=== PATIENT | female | born 1945 | race Hispanic/Latino ===

== ENCOUNTER → 2019-02-15 | Outpatient (CLI) | payer MEDICARE, OTHER ==
[~2019-02-15] MED LIST: IOHEXOL-350 75 ML VIAL IV ONE
== END | disposition home or self-care (01) ==
LOC: RAH 08:22
PROVIDERS: ATTEND Family Medicine
DX: K43.9 Ventral hernia without obstruction or gangrene (principal); R22.2 Localized swelling, mass and lump, trunk; Z90.49 Acquired absence of other specified parts of digestive tract
CPT/HCPCS: 74178; Q9967

== ENCOUNTER 2019-03-13 07:27 | Day surgery (SDC) | payer OTHER ==
[2019-03-09 11:26] VITALS: BP 188/80
[2019-03-09 11:28] LABS: BASOPHILS % (AUTO) 1.1 % (0.0-5.0); EOSINOPHILS % (AUTO) 2.7 % (0.0-8.0); HEMATOCRIT 42.7 % (36-48); LYMPHOCYTES % (AUTO) 13.6 % (21.0-51.0); MEAN CORPUSCULAR HEMOGLOBIN 29.5 pg (27.0-33.0); MEAN CORPUSCULAR HGB CONC 34.4 g/dL (32.0-36.0); MEAN CORPUSCULAR VOLUME 85.9 fL (79-99); MONOCYTES % (AUTO) 7.8 % (3.0-13.0); NEUTROPHILS % (AUTO) 74.8 % (40.0-77.0); PLATELET COUNT (AUTO) 217 K/uL (130-400); RED BLOOD CELL COUNT(AUTO) 4.97 MIL/uL (4.00-5.50); RED CELL DISTRIBUTION WIDTH 13.3 % (11.0-15.5); WHITE BLOOD COUNT (AUTO) 7.6 K/uL (4.8-10.8)
[2019-03-09 11:30] LABS: APPEARANCE,URINE Clear (CLEAR); BILIRUBIN,URINE Negative (NEGATIVE); COLOR,URINE Dark Yellow (YELLOW); GLUCOSE, URINE (UA) Negative (NEGATIVE); KETONES,URINE Negative (NEGATIVE); LEUKOCYTE ESTERASE ,URINE Moderate (NEGATIVE); NITRATE,URINE Negative (NEGATIVE); OCCULT BLOOD,URINE Negative (NEGATIVE); PROTEIN,URINE Negative (NEGATIVE); UROBILINOGEN,URINE 0.2 mg/dL (0.2-1.0)
[2019-03-09 11:33] LABS: CREATININE 0.7 mg/dL (0.5-1.5)
[2019-03-09 11:40] VITALS: BP 140/64
[2019-03-09 11:47] LABS: BACTERIA,URINE Rare /HPF (None Seen); RBC,URINE 0-1 /HPF (0-1); SQUAMOUS EPITHELIAL CELL,UR Few /HPF (0-2)
--- NOTE | 2019-03-12 14:00 | NUR ---
ABNORMAL LABS UA AND BMP RESULTS FAXED TO DR. TSE'S OFFICE EARLIER FOR REVIEW. CALL BACK FROM CLINIC, SPOKE TO [place]. PER DR. TSE, NO FURTHER ORDERS. MAY PROCEED WITH PLANNED PROCEDURE.
[2019-03-13] VITALS (17 sets, daily range): BP systolic 119–151; BP diastolic 53–65
[~2019-03-13] VITALS: Ht 162.6 cm; Wt 108.8 kg
[~2019-03-13 07:27] MED LIST changes: +ALPR0.255 PO; +AMLO10TA7 PO; +ASPI-555 PO; +CARB200T6 PO; +FLUT15.88 NS; +FLUT1DIS3 IH; +HYDR12.54 PO; -IOHEXOL-350 75 ML VIAL IV ONE; +LEVAHFA IH; +METF-444 PO; +RAMI5CAP66 PO; +SIMV10TA6 PO; +SPIR25TA6 PO
[2019-03-13] MEDS: CEFAZOLIN SODIUM 1 GM VIAL IVP SCH ×2 (08:30→09:52)
[2019-03-13] MEDS ORDERED: SODIUM CHLORIDE 0.9% 1000ML 1,000 ML IV ONE (08:42)
--- NOTE | 2019-03-13 09:18 | NUR ---
pt states takes carbamazipine for trigeminal nerve pain ,
[2019-03-13] MEDS ORDERED: GLYCOPYRROLATE 1 MG/5 ML SYRINGE ONE (09:29)
[2019-03-13] MEDS ORDERED: LIDOCAINE PF 2% 5ML ABBOJECT ONE (09:29)
[2019-03-13] MEDS ORDERED: PROPOFOL 10 MG/ML 20ML VIAL IV ONE (09:30)
[2019-03-13] MEDS ORDERED: ROCURONIUM 10MG/1ML SYR 10 MG/ML ML ONE (09:30)
[2019-03-13] MEDS ORDERED: NEOSTIGMINE 5MG/5ML SYR IV ONE (09:30)
[2019-03-13] MEDS ORDERED: FENTANYL CITRATE PF 50 MCG/1 ML 2ML VIAL ONE (09:31)
[2019-03-13] MEDS ORDERED: MIDAZOLAM HCL 1 MG/ML 2ML VIAL ONE (09:36)
[2019-03-13] MEDS ORDERED: ONDANSETRON HCL 4 MG/2 ML VIAL ONE (09:46)
[2019-03-13] MEDS ORDERED: BUPIVACAINE/PF 0.25% 30ML VIAL IJ ONE (10:16)
[2019-03-13] MEDS ORDERED: MEPERIDINE-PF 25 MG/ML SYG ONE (11:05)
--- NOTE | 2019-03-13 12:35 | NUR ---
D/C PT LEFT VIA WHEELCHAIR IN PVT CAR. RX SCRIPT GIVEN TO SON
== END 2019-03-13 12:15 | disposition home or self-care (01) ==
LOC: DAH 07:27
PROVIDERS: ATTEND Surgery
DX: K43.2 Incisional hernia without obstruction or gangrene (principal); I10 Essential (primary) hypertension; E11.9 Type 2 diabetes mellitus without complications; J45.909 Unspecified asthma, uncomplicated; E78.5 Hyperlipidemia, unspecified; R00.2 Palpitations; K21.9 Gastro-esophageal reflux disease without esophagitis; Z90.49 Acquired absence of other specified parts of digestive tract; Z98.890 Other specified postprocedural states; Z98.51 Tubal ligation status
CPT/HCPCS: 36415; 49560; 49568; 80048; 81001; 82948 ×2; 85025; 93005; A4450; A4452; A4606; C1781; J0690; J2001; J2175; J2250; J2405; J2704; J2710; J3010; J3490 ×2; J7030